=== PATIENT | male | born 1995 | race Caucasian/White ===

== ENCOUNTER → 2017-01-10 | Outpatient (CLI) | payer OTHER, BC ==
--- NOTE | 2017-01-10 16:39 | RAD ---
Indication injury, pain. AP oblique and lateral views of the right foot were obtained. No bony abnormality is seen
== END | disposition home or self-care (01) ==
LOC: DXRAD 16:05
PROVIDERS: ATTEND General Practice
DX: S93.601A Unspecified sprain of right foot, initial encounter (principal); Y99.8 Other external cause status; Y93.89 Activity, other specified; Y92.89 Other specified places as the place of occurrence of the external cause; X58.XXXA Exposure to other specified factors, initial encounter
CPT/HCPCS: 73630